=== PATIENT | female | born 2000 | race Caucasian/White ===

== ENCOUNTER 2022-12-30 16:48 | Emergency (ER) | payer OTHER ==
[2022-12-30] MEDS ORDERED: CEFAZOLIN 1 GM VIAL ONE (17:02)
[2022-12-30] MEDS ORDERED: Boostrix 0.5 ML (Tdap) VIAL (>/=7 yrs of age) ONE (17:10)
[2022-12-30] MEDS ORDERED: Lidocaine 1% w/Epinephrine 1:100K 20 ML VIAL ONE (18:12)
== END 2022-12-30 20:12 | disposition home or self-care (01) ==
LOC: ERS 16:48
DX: S02.40FA Zygomatic fracture, left side, initial encounter for closed fracture (principal); S01.412A Laceration without foreign body of left cheek and temporomandibular area, initial encounter; W55.12XA Struck by horse, initial encounter; Z23 Encounter for immunization
CPT/HCPCS: 12054; 70486; 90715; G0390; J0690